=== PATIENT | female | born 1975 | race African-American/Black ===

== ENCOUNTER 2016-12-28 18:30 | Emergency (ER) | payer OTHER ==
[2016-12-28] MEDS ORDERED: Ketorolac Tromethamine 30 MG/ML VIAL ONE (20:52)
[2016-12-28] MEDS ORDERED: Penicillin V Potassium 250 MG TAB PO SCH (21:15)
== END 2016-12-28 21:20 | disposition home or self-care (01) ==
LOC: ERS 18:30
DX: K02.9 Dental caries, unspecified (principal); K03.81 Cracked tooth; B20 Human immunodeficiency virus [HIV] disease; I10 Essential (primary) hypertension; F41.9 Anxiety disorder, unspecified; Z79.899 Other long term (current) drug therapy
CPT/HCPCS: 96372; J1885

== ENCOUNTER 2017-11-27 16:06 | Emergency (ER) | payer OTHER ==
--- NOTE | 2017-11-27 19:00 | RAD ---
CHEST ONE VIEW: 11/27/17 HISTORY: Cough and congestion. COMPARISON: 04/15/16. FINDINGS: The cardiac silhouette is magnified by projection. Pulmonary vasculature unremarkable. Mediastinum is midline. No lobar consolidation or evidence of pneumothorax. IMPRESSION: No active cardiopulmonary abnormalities are demonstrated. POS: [facility]
== END 2017-11-27 20:47 | disposition home or self-care (01) ==
LOC: ERS 16:06
DX: J06.9 Acute upper respiratory infection, unspecified (principal); B20 Human immunodeficiency virus [HIV] disease; I10 Essential (primary) hypertension; F41.9 Anxiety disorder, unspecified; Z79.899 Other long term (current) drug therapy
CPT/HCPCS: 71045; 87804

== ENCOUNTER 2018-06-01 01:33 | Emergency (ER) | payer OTHER ==
[2018-06-01] MEDS ORDERED: Lidocaine 1% (PF) 30 ML VIAL ONE (01:41)
[2018-06-01] MEDS ORDERED: Adacel (T-DAP) 0.5 ML SYRINGE ONE (02:19)
== END 2018-06-01 02:37 | disposition home or self-care (01) ==
LOC: ERS 01:33
DX: S01.511A Laceration without foreign body of lip, initial encounter (principal); B20 Human immunodeficiency virus [HIV] disease; I10 Essential (primary) hypertension; F41.9 Anxiety disorder, unspecified; Z79.899 Other long term (current) drug therapy; Y04.0XXA Assault by unarmed brawl or fight, initial encounter
CPT/HCPCS: 12011; 90471; 90715; J2001

== ENCOUNTER 2019-03-18 19:34 | Emergency (ER) | payer OTHER | END 2019-03-18 20:31 | disposition home or self-care (01) | LOC: ERS 19:34 | DX: H66.91 Otitis media, unspecified, right ear (principal); F41.9 Anxiety disorder, unspecified; B20 Human immunodeficiency virus [HIV] disease; I10 Essential (primary) hypertension; Z79.899 Other long term (current) drug therapy | CPT/HCPCS: 99282 ==

== ENCOUNTER 2019-04-13 13:11 | Outpatient (CLI) | payer OTHER ==
--- NOTE | 2019-04-13 14:22 | MMO ---
Bilateral MAMMO Bilat Screen [facility]. CLINICAL HISTORY: Patient is 44 years old and is seen for screening. The patient has the following family history of breast cancer: maternal grandmother, at age 70, malignant (generic). The patient has no personal history of cancer. VIEWS: The views performed were: bilateral craniocaudal and bilateral mediolateral oblique. This study has been interpreted with the assistance of computer-aided detection. MAMMOGRAM FINDINGS: The breasts are heterogeneously dense, which could obscure a lesion on mammography. There are no suspicious masses, suspicious calcifications, or new areas of architectural distortion. IMPRESSION: THERE IS NO MAMMOGRAPHIC EVIDENCE OF MALIGNANCY. A ROUTINE FOLLOW-UP MAMMOGRAM IN 1 YEAR IS RECOMMENDED. ACR BI-RADS Category 1 - Negative MAMMOGRAPHY NOTE: 1. A negative mammogram report should not delay a biopsy if a dominant of clinically suspicious mass is present. 2. Approximately 10% to 15% of breast cancers are not detected by mammography. 3. Adenosis and dense breasts may obscure an underlying neoplasm. Reported by: ANNA LERMA MD Electonically Signed: [id number]
== END 2019-04-13 13:12 | disposition home or self-care (01) ==
LOC: BICMAMMO 13:11
PROVIDERS: ATTEND Nurse Practitioner Family
DX: Z12.31 Encounter for screening mammogram for malignant neoplasm of breast (principal); Z80.3 Family history of malignant neoplasm of breast
CPT/HCPCS: 77067

== ENCOUNTER 2019-08-07 20:17 | Emergency (ER) | payer OTHER ==
[2019-08-07] MEDS ORDERED: Acetaminophen 500 MG TAB ONE (20:44)
[2019-08-07] MEDS ORDERED: Ondansetron PF 4 MG/2 ML Vial ONE (20:59)
--- NOTE | 2019-08-07 21:28 | RAD ---
Chest AP view INDICATION: Fever COMPARISON: November 27, 2017 FINDINGS: Lungs: The lungs are clear Cardiac silhouette: Heart size accentuated by exam technique. Pulmonary vasculature: Normal Pleural spaces: No pleural effusion or pneumothorax is demonstrated. Upper abdomen: No abnormality seen. Osseous structures: No acute osseous abnormality. Additional findings: None. IMPRESSION: No acute cardiopulmonary abnormality.
[2019-08-07 21:35] LABS: #Lymphocytes 1.2 thou/uL (1.20-3.40); #Monocytes 0.2 thou/uL (0.11-0.59); #Neutrophils 2.5 thou/uL (1.40-6.50); %Eosinophils 0.4 % (0.0-10.0); %Lymphocytes 30.7 % (21.0-51.0); %Monocytes 3.9 % (0.0-10.0); %Neutrophils 65.1 % (42.0-75.0); Hemoglobin 12.7 g/dL (12.0-16.0); Mean Corpuscular HGB CONC 33.2 g/dL (32.0-36.0); Mean Corpuscular Hemoglobin 25.7 pg (27.0-31.0); Mean Corpuscular Volume 77.3 fL (78.0-98.0); Platelet Count 282 thou/uL (130-400); RBC Distribution Width 14.4 % (11.5-14.5); Red Blood Cell (RBC) Count 4.95 mill/uL (4.20-5.40); White Blood Cell (WBC) Count 3.8 thou/uL (4.8-10.8)
[2019-08-07 21:42] LABS: BHCG - Serum Negative (NEGATIVE); Pregs Control Background? CLEAR/WHITE (CLR/WHITE); Pregs Control Bar Appear? YES (CONTROL BAR)
[2019-08-07 22:12] LABS: Bacteria/HPF 4+ HPF (None Seen); Bilirubin Negative (Negative); Blood, Urine 1+ (Negative); Clarity Turbid (Clear); Glucose, Urine (Dipstick) Normal (Negative); Leukocyte 500 Leu/uL (Negative); Nitrite 2+ (Negative); Protein, Urine (Dipstick) 50 mg/dL (Neg-Trace); RBC/HPF 0-3 HPF (0-3); Urobilinogen Normal mg/dL (Less than 2); WBC/HPF 21-50 HPF (0-3)
== END 2019-08-07 21:58 | disposition home or self-care (01) ==
LOC: MERGE 20:17 → ERS 20:17
DX: U07.1 COVID-19 (principal); R11.2 Nausea with vomiting, unspecified; I10 Essential (primary) hypertension; Z79.899 Other long term (current) drug therapy
CPT/HCPCS: 36415; 71045; 81003; 81015; 83605; 84703; 85025; 87635; 96374; J2405; U0003